=== PATIENT | male | born 1930 | race Caucasian/White ===

== ENCOUNTER → 2017-06-26 | Outpatient (CLI) | payer MEDICARE ==
[~2017-06-26] MED LIST: ASP325T PO; ASP81TEC PO; CEPH500C PO; ENAL10TA PO; ENAL20TA PO; MECL-133 PO; METO25TA PO; METO25TA2 PO; MULT-52 PO; MULT-974 PO; PNT40TEC PO; PRAV40TA PO; RANI-10 PO
--- NOTE | 2017-06-26 12:10 | Diagnostic Imaging Report ---
PROCEDURE: CT head without contrast. TECHNIQUE: Multiple contiguous axial images were obtained through the brain without the use of intravenous contrast. INDICATION: Dizziness and double vision after head trauma. Comparison made with prior examination 12/09/10. FINDINGS: There is prominence of ventricles and sulci. 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 There is no hydrocephalus. There is no midline shift. There is no intracranial mass, hemorrhage or extra-axial fluid collection. Sinuses and mastoid air cells are clear. IMPRESSION: No acute intracranial abnormality. 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 Dictated by: Dictated on workstation # [id number]
== END ==
LOC: RAD 11:20
PROVIDERS: ATTEND Family Medicine
DX: R42 Dizziness and giddiness (principal); H53.2 Diplopia; I10 Essential (primary) hypertension
CPT/HCPCS: 70450

== ENCOUNTER → 2020-08-21 | Outpatient (CLI) | payer MEDICARE ==
--- NOTE | 2020-08-21 13:41 | Diagnostic Imaging Report ---
INDICATION: Diplopia, weight loss. PA and lateral chest. Heart size and pulmonary vascularity are normal. Lungs are clear. There are no effusions or pneumothoraces. IMPRESSION: Negative chest. Dictated by: Dictated on workstation # [id number]
== END ==
LOC: RAD 11:31
DX: R63.4 Abnormal weight loss (principal); H53.2 Diplopia
CPT/HCPCS: 71046

== ENCOUNTER → 2020-08-23 | Outpatient (CLI) | payer MEDICARE ==
--- NOTE | 2020-08-23 11:25 | Diagnostic Imaging Report ---
PROCEDURE: CT chest, abdomen, and pelvis without contrast. TECHNIQUE: Multiple contiguous axial images were obtained through the chest, abdomen, and pelvis without the use of intravenous contrast. Auto Exposure Controls were utilized during the CT exam to meet ALARA standards for radiation dose reduction. INDICATION: Weight loss. CT CHEST: No axillary lymphadenopathy is identified. Mediastinal and hilar evaluation is limited without intravenous contrast but no significant abnormality is seen. There are coronary arterial calcifications present. No pericardial or pleural fluid is identified. No pulmonary infiltrates are detected. No nodules or masses are seen. Bony structures are unremarkable. IMPRESSION: Unremarkable noncontrast CT of the chest. CT ABDOMEN AND PELVIS: No discrete liver mass is identified. Gallbladder is unremarkable. No biliary ductal dilatation is identified. Pancreas and spleen are unremarkable. No adrenal mass is detected. Kidneys are without calculi or hydronephrosis. Aorta is non-aneurysmal. No definite central retroperitoneal or mesenteric lymphadenopathy is identified. Bowel loops are normal caliber. No obstruction is seen. There does appear to be moderate stool throughout the transverse and ascending colon suggestive of constipation. There is diverticulosis of the sigmoid but no evidence of acute diverticulitis. No free fluid or fluid collection is seen. Bladder is decompressed. Prostate is unremarkable. No inguinal or iliac lymphadenopathy is seen. Bony structures appear nonacute. IMPRESSION: 1. Uncomplicated diverticulosis. 2. Moderate stool suggestive of constipation. 3. No acute abnormality is detected. Dictated by: Dictated on workstation # [id number]
== END ==
LOC: RAD 11:45
DX: R63.4 Abnormal weight loss (principal)
CPT/HCPCS: 71250; 74176